=== PATIENT | female | born 1965 | race Caucasian/White ===

== ENCOUNTER 2016-11-14 11:20 | Emergency (ER) | payer OTHER ==
[~2016-11-14] VITALS: Ht 160 cm; Wt 74.0 kg
[2016-11-14 11:55] LABS: HEMATOCRIT 46.1 % (36.0-46.0); MCH 30.4 PG (29.0-34.0); MCHC 33.4 G/DL (30.0-36.0); MCV 91.1 FL (83-99); MEAN PLAT.VOLUME 10.1 uM^3 (9.5-12.4); PLATELET COUNT 268 K/uL (156-360); RBC DIS.WIDTH-CV 13.6 % (11.8-14.6); RED BLOOD COUNT 5.06 M/uL (3.80-5.20); WHITE BLOOD COUNT 14.2 K/uL (4.1-10.2)
[2016-11-14 12:40] LABS: ANION GAP 10 MEQ/L (2-14); CHLORIDE 103 MEQ/L (99-109); POTASSIUM 4.1 MEQ/L (3.7-5.4); SAMPLE HEMOLYSIS CHECK 0; SAMPLE ICTERIC CHECK 0; SAMPLE LIPEMIA CHECK 0; SODIUM 136 MEQ/L (136-147); TOTAL BILIRUBIN 1.1 MG/DL (0.0-1.0)
[2016-11-14 12:46] LABS: ALKALINE PHOSPHATASE 89 IU/L (3-129); GFR ESTIMATE (CALCULATED) > 59 mL/min/; GLUCOSE 103 mg/dL (70-99); UREA NITROGEN (BUN) 7 mg/dL (9-23)
[2016-11-14 12:49] LABS: QUANTITATIVE HCG < 4.0 MIU/ML
[2016-11-14 13:31] LABS: ADD MIUA? YES; BILIRUBIN NEGATIVE; BLOOD MODERATE; COLOR AMBER ((YELLOW)); GLUCOSE (STRIP) NEGATIVE; KETONES 5; LEUKOCYTES NEGATIVE; NITRITE NEGATIVE; PROTEIN (STRIP) NEGATIVE; SPECIFIC GRAVITY 1.019 (1.000-1.030); UROBILINOGEN 0.2 MG/DL (0.2-1.0)
[2016-11-14 13:43] LABS: BACTERIA 1+ /HPF; EPITHELIAL CELLS 4+ /HPF; MUCUS 3+ /LPF; UCUL ADDED? NO; WHITE BLOOD CELLS 0-5 /HPF (0-5)
[2016-11-14] MEDS ORDERED: CIPRO500 MG PO (15:36)
[2016-11-14] MEDS ORDERED: FLAGYL500 MG PO (15:36)
[2016-11-14] MEDS ORDERED: NORCO 5/3251 TABLET PO (15:36)
[2016-11-14 16:08] VITALS: BP 137/82
== END 2016-11-14 16:00 | disposition home or self-care (01) ==
LOC: EME 11:20
DX: K57.32 Diverticulitis of large intestine without perforation or abscess without bleeding (principal); F17.200 Nicotine dependence, unspecified, uncomplicated
CPT/HCPCS: 74176; 80053; 81003; 84702; 85027; 99281; 99284